=== PATIENT | female | born 1995 | race Caucasian/White ===

== ENCOUNTER 2018-06-06 00:01 | Emergency (ER) | payer OTHER ==
[2018-06-06 00:35] VITALS: BP 107/71; PULSE 88; TEMP 98.2; BMI 25.0
--- NOTE | 2018-06-06 00:39 | PDOC ---
Attending Attestation - Resident Resident Name: Fara Seaman - ED Attending Attestation I have performed the following: I have examined & evaluated the patient, The case was reviewed & discussed with the resident, I agree w/resident's findings & plan, Exceptions are as noted
--- NOTE | 2018-06-06 01:09 | PDOC ---
*Physical Exam - Vital Signs Last Vital Signs Temp Pulse Resp BP Pulse Ox 98.2 F 88 18 107/71 100 06/06/18 00:25 06/06/18 00:25 06/06/18 00:25 06/06/18 00:25 06/06/18 00:25 Medical Decision Making - Medical Decision Making 06/06/18 01:08 Pt seen by Midlevel Provider under my direct supervision Pt interviewed and examined Ancillary studies reviewed I agree with plan as outlined by Midlevel Provider *DC/Admit/Observation/Transfer Diagnosis at time of Disposition: Vasovagal reaction, Foot laceration - Discharge Dispostion Condition at time of disposition: Stable - Referrals Referrals: ON STAFF,NOT [Primary Care Provider] - - Patient Instructions Printed Discharge Instructions: DI for Syncope in Adults (Fainting), DI for Laceration Repair Additional Instructions: Keep the incision clean and dry for 24 hours. After 24 hours, you may allow the soap and water to rinse off your incision. Avoid direct pressure of the water to the incision. Pat the incision dry with a clean clothe. Apply a small amount of bacitracin onto the incision. Cover the incision loosely with a bandaid. Take tylenol/motrin as needed for pain. Follow up with your physician or the ER in 48 hours for a wound check. Return to the ER if you notice red streaks, increase redness/swelling/severe pain to the incision. Suture removal in 10 days. Follow-up with your physician regarding your fainting spell after seeing the blood on your foot - Post Discharge Activity
--- NOTE | 2018-06-06 01:25 | PDOC ---
History of Present Illness - General Chief Complaint: Laceration Stated Complaint: SYNCOPE/NEAR SYNCOPE Time Seen by Provider: 06/06/18 00:36 History Source: Patient Exam Limitations: No Limitations - History of Present Illness Initial Comments: 06/06/18 01:02 Best Contact: PCP: jani Pmhx:none Pshx: none Allergies: nkda FH:0 Social Hx: Cigarettes/ 0 Alcohol/ 0 Drugs/0 LMP:05/29/2018 06/06/18 01:26 23-year-old female presents to the emergency department with her mother and brother complaining of a laceration to the mid lateral right foot. Patient states she accidentally brushed her right foot against the edge of the mirror causing a partial thickness laceration. Patient states the incident occurred approximately 2 hours ago which she immediately bandaged and was going to go to sleep. Approximately an hour and a half later, she noticed that it was still bleeding which caused her to feel lightheaded. Patient states whenever she sees blood, she feels lightheaded. Patient states she "almost fainted" but did not lose consciousness. Patient denies headache, dizziness, lightheadedness, neck/ back pains, chest pain, shortness of breath, abdominal pains, Dwaine numbness or tingling sensation. Tetanus within the past 5 years. Procedure: Procedure: Right lateral midfoot 3 cm horizontal partial thickness laceration Betadine prep 1% lidocaine: 2.5 mL Normal saline/copious irrigation Re-Betadine prep Aseptic draping (4) 4-0 nylon simple interrupted Bacitracin Telfa kerlex Past History - Past Medical History Allergies/Adverse Reactions: Allergies Allergy/AdvReac Type Severity Reaction Status Date / Time No Known Allergies Allergy Verified 06/06/18 00:31 Home Medications: Ambulatory Orders Amoxicillin - [Amoxicillin 875mg Tablet -] 875 mg PO BID #14 tab 05/31/16 - Suicide/Smoking/Psychosocial Hx Smoking History: Never smoked Have you smoked in the past 12 months: No Information on smoking cessation initiated: No Hx Alcohol Use: No Drug/Substance Use Hx: No Review of Systems - Review of Systems Able to Perform ROS?: Yes Comments:: 06/06/18 01:05 CONSTITUTIONAL: Absent: fever, chills, diaphoresis, generalized weakness, malaise, loss of appetite HEENT: Absent: rhinorrhea, nasal congestion, throat pain, throat swelling, difficulty swallowing, mouth swelling, ear pain, eye pain, visual Changes CARDIOVASCULAR: Absent: chest pain, loss of consciousness, palpitations, irregular heart rate, peripheral edema RESPIRATORY: Absent: cough, shortness of breath, dyspnea with exertion, orthopnea, wheezing, stridor, hemoptysis GASTROINTESTINAL: Absent: abdominal pain, abdominal distension, nausea, vomiting, diarrhea, constipation, melena, hematochezia GENITOURINARY: Absent: dysuria, frequency, urgency, hesitancy, hematuria, flank pain, genital pain MUSCULOSKELETAL: Absent: myalgia, arthralgia, joint swelling SKIN: +lac to lat mid foot Absent: rash, itching, pallor HEMATOLOGIC/IMMUNOLOGIC: Absent: easy bleeding, easy bruising, lymphadenopathy, frequent infections ENDOCRINE: Absent: unexplained weight gain, unexplained weight loss, heat intolerance, cold intolerance NEUROLOGIC: Absent: headache, focal weakness or paresthesias, dizziness, unsteady gait, seizure, mental status changes, bladder or bowel incontinence PSYCHIATRIC: Absent: anxiety, depression, suicidal or homicidal ideation, hallucinations. Is the patient limited [place]olan proficient: No *Physical Exam - Vital Signs Last Vital Signs Temp Pulse Resp BP Pulse Ox 98.2 F 88 18 107/71 100 06/06/18 00:25 06/06/18 00:25 06/06/18 00:25 06/06/18 00:25 06/06/18 00:25 - Physical Exam Comments: 06/06/18 01:06 GENERAL: Well developed, well nourished. Awake and alert. No acute distress. HEENT: Normocephalic, atraumatic. PERRLA, EOMI. No conjunctival pallor. Sclera are non- icteric. Moist mucous membranes. Oropharynx is clear. NECK: Supple. Full ROM. No JVD. Carotid pulses 2+ and symmetric, without bruits. No thyromegaly. No lymphadenopathy. CARDIOVASCULAR: Regular rate and rhythm. No murmurs, rubs, or gallops. Distal pulses are 2+ and symmetric. PULMONARY: No evidence of respiratory distress. Lungs clear to auscultation bilaterally. No wheezing, rales or rhonchi. ABDOMINAL: Soft. Non-tender. Non-distended. No rebound or guarding. No organomegaly. Normoactive bowel sounds. MUSCULOSKELETAL Normal range of motion at all joints. No bony deformities or tenderness. No CVA tenderness. EXTREMITIES: 3cm horizontal lac to mid lat foot 2 point discrimination intact Right foot: 2+cap refill No cyanosis. No clubbing. No edema. No calf tenderness. SKIN: Warm and dry. Normal capillary refill. No rashes. No jaundice. NEUROLOGICAL: Alert, awake, appropriate. Cranial nerves 2-12 intact. No deficits to light touch and temperature in face, upper extremities and lower extremities. No motor deficits in the in face, upper extremities and lower extremities. Normoreflexic in the upper and lower extremities. Normal speech. Toes are down- going bilaterally. Gait is normal without ataxia. PSYCHIATRIC: Cooperative. Good eye contact. Appropriate mood and affect. *DC/Admit/Observation/Transfer Diagnosis at time of Disposition: Vasovagal reaction Foot laceration Qualifiers: Encounter type: initial encounter Laterality: right Qualified Code(s): S91.311A - Laceration without foreign body, right foot, initial encounter - Discharge Dispostion Condition at time of disposition: Stable Decision to Admit order: No - Referrals Referrals: ON STAFF,NOT [Primary Care Provider] - - Patient Instructions Printed Discharge Instructions: DI for Syncope in Adults (Fainting), DI for Laceration Repair Additional Instructions: Keep the incision clean and dry for 24 hours. After 24 hours, you may allow the soap and water to rinse off your incision. Avoid direct pressure of the water to the incision. Pat the incision dry with a clean clothe. Apply a small amount of bacitracin onto the incision. Cover the incision loosely with a bandaid. Take tylenol/motrin as needed for pain. Follow up with your physician or the ER in 48 hours for a wound check. Return to the ER if you notice red streaks, increase redness/swelling/severe pain to the incision. Suture removal in 10 days. Follow-up with your physician regarding your fainting spell after seeing the blood on your foot - Post Discharge Activity
== END 2018-06-06 01:55 | disposition home or self-care (01) ==
LOC: JER 00:01
PROC: 0JQQ0ZZ Repair Right Foot Subcutaneous Tissue and Fascia, Open Approach (ICD-10-PCS; principal; 2018-06-06)
DX: R55 Syncope and collapse (principal); S91.311A Laceration without foreign body, right foot, initial encounter; W25.XXXA Contact with sharp glass, initial encounter; Y93.89 Activity, other specified; Y92.038 Other place in apartment as the place of occurrence of the external cause; Y99.8 Other external cause status
CPT/HCPCS: 12002; 99281-25